=== PATIENT | female | born 1995 | race Native Hawaiian/Other Pacific Islander ===

== ENCOUNTER 2017-02-24 01:03 | Emergency (ER) | payer MEDICAID ==
[2017-02-24 01:29] VITALS: BP 146/84; PULSE 114; RESP 16; TEMP 98.6; O2SAT 96
--- NOTE | 2017-02-24 03:40 | ED PDOC ---
HPI: Abdomen Time Seen by Provider: 02/24/17 01:22 Chief Complaint (Nursing): Abdominal Pain Chief Complaint (Provider): Abdominal Pain History Per: Patient History/Exam Limitations: no limitations Onset/Duration Of Symptoms: Hrs (about 8 hours ago) Associated Symptoms: denies: Nausea, Vomiting Additional Complaint(s): Patient is a 21 y/o [place] female (G1, P0) who is 11 weeks with no past medical history, who presents to the ED complaining of acute abdominal pain after being inadvertently elbowed in her abdomen while at work. She denies any associated vaginal bleeding, vaginal discharge, nausea, or vomiting. PCP: Provider TBD Abnormal Vaginal Bleeding: No : 1 Para: 0 Past Medical History Reviewed: Historical Data, Nursing Documentation, Vital Signs Vital Signs: Last Vital Signs Temp 98.6 F 02/24/17 01:15 Pulse 114 H 02/24/17 01:15 Resp 16 02/24/17 01:15 BP 146/84 02/24/17 01:15 Pulse Ox 96 02/24/17 01:15 - Medical History PMH: No Chronic Diseases Denies: Diabetes, Hepatitis, HIV, HTN, Seizures, Sexually Transmitted Disease - Surgical History Surgical History: No Surg Hx - Family History Family History: States: Unknown Family Hx - Social History Current smoker - smoking cessation education provided: No Alcohol: None Drugs: Denies - Allergies Allergies/Adverse Reactions: Allergies Allergy/AdvReac Type Severity Reaction Status Date / Time No Known Allergies Allergy Verified 02/05/15 12:15 Review of Systems ROS Statement: Except As Marked, All Systems Reviewed And Found Negative Gastrointestinal: Positive for: Abdominal Pain. Negative for: Nausea, Vomiting Genitourinary Female: Negative for: Vaginal Discharge, Vaginal Bleeding Physical Exam - Reviewed Nursing Documentation Reviewed: Yes Vital Signs Reviewed: Yes - Physical Exam Appears: Positive for: No Acute Distress Head Exam: Positive for: ATRAUMATIC, NORMOCEPHALIC Skin: Positive for: Normal Color, Warm, Dry Eye Exam: Positive for: Normal appearance, EOMI, PERRL Neck: Positive for: Normal, Painless ROM, Supple Cardiovascular/Chest: Positive for: Regular Rate, Rhythm. Negative for: Murmur Respiratory: Positive for: Normal Breath Sounds. Negative for: Respiratory Distress Gastrointestinal/Abdominal: Positive for: Normal Exam, Soft. Negative for: Tenderness Back: Positive for: Normal Inspection. Negative for: L CVA Tenderness, R CVA Tenderness, Vertebral Tenderness Extremity: Positive for: Normal ROM. Negative for: Pedal Edema, Deformity Neurologic/Psych: Positive for: Alert, Oriented (x3). Negative for: Motor/ Sensory Deficits - ECG O2 Sat by Pulse Oximetry: 96 (RA) Pulse Ox Interpretation: Normal Medical Decision Making Medical Decision Makin:34 Initial Impression: 21 y/o female Initial Plan: * Urine * ED Urine Dipstick * Urinalysis * OB , Limited US 03:23 -OB , Limited US FINDINGS: Fetus: Single live intrauterine . Heart rate: 155 beats per minute Presentation: Variable. Placenta: Appears to be anterior. No abruption. Amniotic fluid: Unremarkable. Anatomy: Visualized anatomy is normal. BIOMETRICS Gestational age by US: EFW: 64 g plus or minus 9.6 g. MATERNAL: Uterus: Unremarkable. No myometrial mass. Cervix: Unremarkable as visualized. Closed. Free fluid: No free fluid. Ovaries: Nonvisualization of the right and left ovaries. IMPRESSION: Unremarkable ultrasound 03:40 -Patient stable for discharge, advised to follow-up with her [facility] as scheduled Clinical Impression: Abdominal Pain Upon provider evaluation patient is medically stable, and requires no further treatment in the ED at this time. Patient will be discharged. Counseling was provided and all questions were answered regarding diagnosis. There is agreement to discharge plan. Return if symptoms persist or worsen. Scribe Attestation: Documented by Wendie Toure, acting as a scribe for Shamar Mathews MD Provider Scribe Attestation: All medical record entries made by the Scribe were at my direction and personally dictated by me. I have reviewed the chart and agree that the record accurately reflects my personal performance of the history, physical exam, medical decision making, and the department course for this patient. I have also personally directed, reviewed, and agree with the discharge instructions and disposition. Disposition - Clinical Impression Clinical Impression: Abdominal pain during - Patient ED Disposition Is Patient to be Admitted: No - Disposition Disposition: Routine/Home Disposition Time: 03:40 Condition: STABLE Instructions: Abdominal Pain in (ED) Forms: [employer] (Amharic)
--- NOTE | 2017-02-24 11:27 | US ---
PROCEDURE: First trimester ultrasound HISTORY: /suprapubic pain LMP 11/26/2016 COMPARISON: None available. TECHNIQUE: Standard protocol for this study/examination. FINDINGS: Variable presentation. Interior Placenta. No evidence of abruption or previa Gestational age derived from LMP 12 weeks 6 days Gestational age derived from the following biometric parameters 13 weeks . Biparietal diameter 2.04 cm Head circumference7.13 cm Abdominal circumference 6.06 cm Femur length 0.90 cm Estimated weight 63.7 g Calculated cardiac rate 155 beats per min. Closed cervix measuring 3.62 cm TANYA based on LMP: 09/02/2017 TANYA based on biometry: 09/01/2017 IMPRESSION: 13 weeks live intrauterine gestation.
== END 2017-02-24 03:44 | disposition home or self-care (01) ==
LOC: H.ER 01:03
DX: O26.899 Other specified pregnancy related conditions, unspecified trimester (principal)